=== PATIENT | female | born 1995 | race African-American/Black ===

== ENCOUNTER 2019-06-19 18:10 | Inpatient (IN) | payer OTHER, SELFPAY ==
[2019-06-19 16:27] VITALS: BMI 25.0
[2019-06-19] MEDS: Lactated Ringers 1,000 ML 50 ML IV (18:40)
[2019-06-19 19:10] LABS: Absolute Lymphocyte Count 1.73 X10^3/uL (0.83-4.51); Absolute Neutrophil Count 8.2 X10^3/uL (2.0-7.7); Basophil# 0.05 X10^3/uL; Basophil% 0.4 % (0-1); Eosinophil# 0.09 X10^3/uL; Eosinophils% 0.8 % (0-5); Hematocrit 31.9 % (37-47); Hemoglobin 10.2 g/dL (12.0-15.0); Lymphocyte # 1.73 X10^3/ul (4.0); Lymphocyte % 15.5 % (19-41); Mean Corpuscular Hgb 29.6 pg (27.0-32.0); Mean Corpuscular Volume 92.5 fL (81-99); Mean Platelet Vol. 11.9 fl (6.2-12.0); Monocyte# 0.88 X10^3/uL; Monocyte% 7.9 % (0-10); NRBC Flagged by Analyzer 0 % (0-5); Neutrophil # 8.19 X10^3/uL (2.7-7.7); Neutrophil % 73.3 % (47-70); Platelet Count 186 K/mm3 (150-450); RBC Distribution Width CV 13.1 % (11.6-14.6); RBC Distribution Width SD 43.8 fl (35.1-43.9); Red Blood Count 3.45 M/mm3 (4.2-5.4); White Blood Count 11.2 K/mm3 (4.4-11.0)
[2019-06-19] MEDS: Lactated Ringers 500 ML 999 ML IV ×2 (21:53→23:54)
[2019-06-19] MEDS: fentaNYL-bupivacaine (epidural) 100 ML BAG EPIDURAL (23:03)
[2019-06-20] MEDS: Acetaminophen 325 MG Tablet PO (00:20)
[2019-06-20] MEDS: Oxytocin 30 units/NS 500 ml 30 UNITS/500 ML IV.SOLN IV (00:27)
[2019-06-20] MEDS: Oxytocin 30 units/NS 500 ml 30 UNITS/500 ML IV.SOLN 334 UNITS IV (03:03)
--- NOTE | 2019-06-20 03:12 | PCM.HP.OB ---
History Date of Admission: 06/19/19 Final VARINDER: 06/16/19 Gestational age: 40 Weeks and 4 Days History of this : This is a 23 year-old, G [], P [], at 40 weeks gestational age. Allergies No Known Allergies Allergy (Verified 06/19/19 16:28) Home Medications: Home Medications Pnv No.95/Ferrous Fum/Folic AC [ Caplet] 1 ea PO 06/19/19 Smoking Status: Never smoker Number of Fetus(es): 1 History Past Pregnancies: Past Pregnancies Delivery Date Name GA/Weeks Outcome Route Weight Gender Labor Length Anesthesia Delivery Location Provider FOB Labs: see [facility]P Physical Exam General: Alert, Oriented x3 Abdomen: Soft, Non Tender, Non-Distended, Gravid MANUFACTURING LAB TECHNICIAN: Normal external genitalia Presentation: Cephalic Assessment/Plan This is a 23 year-old, G 4, P 2, at 40&3 weeks gestational age. Admit to L&D Expectant management GBS positive - pcn Pain - epidural Routine care
--- NOTE | 2019-06-20 03:15 | PCM.OPRPT ---
Vaginal Delivery Maternal Presentation: Active Labor Amniotic Membrane Rupture Type: Spontaneous Amniotic Fluid Description: Moderate meconium Final VARINDER: 06/16/19 Gestational age: 40 Weeks and 4 Days Date of Procedure: 06/20/19 Pre-Operative Diagnosis: Labor Post-Operative Diagnosis: Labor Surgery/ Procedure Performed: Spontaneous Vaginal Delivery Type of Anesthesia: Epidural Description of Procedure: Patient prepped & draped in stirrups when C/C/+2. She pushed to deliver head. Tight nuchal cord clamped & cut. head gently guided to allow delivery of anterior and posterior shoulders. No excess traction placed on head. Body delivered and placed on maternal abdomen. Infant then taken to warmer where section hand helper waiting. Placenta delivered with gentle traction. Good uterine tone obtained. Presentation: BRENNAN Placental Delivery Description: Expressed Placenta Disposition: [facility] Cord Vessel Description: 3 Vessels Cord Entanglement: Around neck x 1, tight Estimated Blood Loss: 250ml A gender: Female - Britt (1 minute): 8 (5 minute): 9 Episiotomy Description: None Laceration: None Medications given after delivery: IV Pitocin Complications: None
[2019-06-20] MEDS: 0.9% Saline Lock 10 ML Syringe IV (06:00)
[2019-06-20 07:30] VITALS: BP 111/72; PULSE 68; RESP 16; TEMP 36.6
[2019-06-20 07:40] VITALS: BP 111/72; PULSE 68; RESP 16; TEMP 36.6
[2019-06-20] MEDS: Ibuprofen 600 MG Tablet PO ×2 (09:08→16:51)
--- NOTE | 2019-06-20 09:14 | NURSING ---
This nursing technician directly observed Lizet Dumont administering motrin to this patient.
--- NOTE | 2019-06-20 10:26 | NURSING ---
Taught patient about uses, side effects, and indications for Motrin administration.
[2019-06-20 12:27] VITALS: BP 118/73; PULSE 66; RESP 16; TEMP 36.3
--- NOTE | 2019-06-20 12:39 | NURSING ---
This didactic instructor reviewed the documentation completed by Elvia Dumont student nurse and it is complete.
[2019-06-20] MEDS: Acetaminophen 500 MG Tablet 1000 MG PO ×2 (13:38→21:23)
[2019-06-20 16:30] VITALS: BP 116/77; PULSE 71; RESP 16; TEMP 36.6
[2019-06-20] MEDS: Senna/Docusate Sodium 1 Tablet PO (16:51)
[2019-06-20 20:00] VITALS: BP 110/68; PULSE 64; RESP 18; TEMP 36.3; O2SAT 96
[2019-06-20] MEDS: oxyCODONE 5 MG Tablet PO (20:11)
[2019-06-21 01:00] VITALS: BP 108/66; PULSE 80; RESP 16; TEMP 36.3; O2SAT 97
--- NOTE | 2019-06-21 03:43 | NURSING ---
Patient requested that I perform her 's 24 hour screening in the patient's room when discussed at the beginning of the shift. Explained to patient that their would be a blood draw, weight, and pulse ox test. Patient verbalized understanding. Entered patient's room at 0300 to remind patient about 24 hour screening. Asked patient again about performing the test in the patient's room. Patient stated again that she wanted the tests done in the room. Brought all equipment into the room to start screenings. was crying during screenings. Attempted to swaddle and soothe infant. Both parents put pillows over their heads during screening. Father of the baby asked, Are you almost done? Explained that their were a few more tests, as I had only finished the CCHD test at that point. Started to redress after weighing infant. Mother started to dress infant herself and appeared frustrated. Asked patient if I could help her with anything. Patient declined. Call light in reach.
[2019-06-21 04:08] VITALS: BP 103/69; PULSE 91; RESP 18; TEMP 36.2; O2SAT 97
--- NOTE | 2019-06-21 08:21 | PCM.PN.OB ---
Subjective: Patient complaining of pain that was not controlled with naproxen, even after oxycodone she still had some pretty intense cramping. Average lochia. Urinating without difficulty. Would like to go home today.. - Physical Exam General: Alert, Cooperative, No apparent distress Vital Signs Temp Pulse Resp BP Pulse Ox 97.2 F L 91 18 103/69 97 06/21/19 04:08 06/21/19 04:08 06/21/19 04:08 06/21/19 04:08 06/21/19 04:08 Oxygen Delivery Method Room Air Weight: 70.307 kg Body Mass Index (BMI) 25.0 Intake and Output for Last 24 Hours 06/19/19 06/20/19 06/21/19 23:59 23:59 23:59 Intake Total 956.66 / 956.66 1575.2 / 1575.2 Output Total 1750 / 1750 Balance 956.66 / 956.66 -174.8 / -174.8 Medical Necessity - Tobacco Use Smoking Status: Never smoker Assessment/Plan day #1 status post vaginal delivery. Infant is breast-feeding and doing well. Patient would like to be discharged home today. Routine instructions and prescriptions. We will give a prescription for limited oxycodone as patient has required it for pain control.
--- NOTE | 2019-06-21 08:25 | DCINST_ITS ---
Discharge Diet: No Restrictions Discharge Activity: Return to Normal Activity, May not drive while taking narcotic pain medications., May Shower May resume sexual activity in: 4-6 weeks Additional Activity Instructions:: Nothing in the vagina for 4-6 weeks. You may return to work/school in 6 weeks. Call your doctor if your incision/area has: Continuous Slow Oozing, Sudden Increased Bleeding, Increased Pain/ Swelling, Increased Redness, Foul Smelling Discharge Additional Instructions: If you experience any of the following, contact your healthcare provider. * Bleeding that soaks a pad every hour for 2 hours * Fever 100.4 or higher * Unrelieved incision or abdominal pain * Swelling, redness, discharge or bleeding from your incision or episiotomy site * Your incision begins to separate * Problems urinating (including inability to urinate or burning while urinating). * Visual changes * Severe headache * Flu-like symptoms * Pain or redness in one of both of your breasts * Pain, warmth, tenderness or swelling in your legs, especially the calf area * Frequent nausea and vomiting * Symptoms of depression or anxiety If you experience any of the following, call 911 or go to the nearest Emergency Room. * Chest pain * Problems breathing * Seizure activity * Partial or complete paralysis of a body part, slurred speech, weakness or drooping of the face, or a sudden inability to walk or hold your balance Allergies/Adverse Reactions: Allergies No Known Allergies Allergy (Verified 06/19/19 16:28) Medications to take at Discharge Pnv No.95/Ferrous Fum/Folic AC [ Caplet] 1 ea PO 06/19/19 Ibuprofen [Motrin] 600 mg PO Q6H PRN #60 tab 06/21/19 Oxycodone HCl/Acetaminophen [Percocet 5/325] 1 - 2 tab PO Q8 PRN 4 Days #8 tab 06/21/19 The following prescriptions were given: Ibuprofen [Motrin] 600 mg PO Q6H PRN #60 tab PRN Reason: Pain Transmission Status: Sent to [facility] Oxycodone HCl/Acetaminophen [Percocet 5/325] 1 - 2 tab PO Q8 PRN 4 Days #8 tab PRN Reason: Pain Transmission Status: Sent to [facility] Please Follow Up With: Angelito Baez - [phone] When: Call to make an appointment with your doctor in 6 weeks and 1-2 weeks if needed or if high blood pressure Primary Care Physician: Care Physician,No Primary [Primary Care Provider] - Test Results: Test results from this visit will be discussed in further detail at your follow- up appointment, if applicable.
[2019-06-21 08:35] VITALS: BP 108/68; PULSE 76; RESP 18; TEMP 36.5
[2019-06-21] MEDS: oxyCODONE 5 MG Tablet PO (08:47)
== END 2019-06-21 12:35 | disposition home or self-care (01) | DRG 807 ==
LOC: OBT 18:31 → WP 18:31
PROVIDERS: Admitting Provider Obstetrics & Gynecology; Referring Provider Obstetrics & Gynecology; Visit Provider Obstetrics & Gynecology
DX: O42.92 Full-term premature rupture of membranes, unspecified as to length of time between rupture and onset of labor (principal); O77.0 Labor and delivery complicated by meconium in amniotic fluid; O99.824 Streptococcus B carrier state complicating childbirth; O69.1XX0 Labor and delivery complicated by cord around neck, with compression, not applicable or unspecified; Z3A.40 40 weeks gestation of pregnancy; Z37.0 Single live birth
CPT/HCPCS: 59025; 59050; 85025; 86850; 86900; 86901; 99218; J7120; A4216; G0378